=== PATIENT | female | born 2000 | race Caucasian/White ===

== ENCOUNTER 2022-03-03 13:03 | Emergency (ER) | payer MEDICAID, OTHER ==
[~2022-03-03] VITALS: Ht 162 cm; Wt 65.0 kg
--- NOTE | 2022-03-03 13:23 | ED GU-Female ---
General Chief Complaint: - Reproductive Stated Complaint: MISCARRIAGE Nursing Triage Note: PT REPORTS SHE IS ABOUT 7-8 WEEKS AND REPORTS SHE HAS BEEEN HAVING SOME CRAMPING FOR THE PAST 2 WEEKS. PT REPORTS SHE HAD INTERCOURSE LAST PM AND NOW THIS AM AT ABOUT 1030 SHE NOTICED SOME LIGHT PINK SPOTTING. Source: patient Exam Limitations: no limitations History of Present Illness Date Seen by Provider: Mar 03, 2022 Time Seen by Provider: 13:05 Initial Comments 21-year-old female at roughly 6 to 7 weeks with her LMP beginning of January coming in due to spotting. Started roughly 3 hours ago, has been very minimal, pink-tinged. Has some lower abdominal cramping and discomfort which is very mild. Has not taken anything for it as of yet. Has had confirmatory positive test, but has not had any ultrasound as of yet. Otherwise denies any fever, chest pain, severe abdominal pain, nausea, vomiting, diarrhea, dysuria, rash, or any other concerns. Of note, the patient did engage in coitus last night. Allergies and Home Medications Allergies Coded Allergies: No Known Drug Allergies (Unverified , 03/03/22) Patient Home Medication List Home Medication List Reviewed: Yes Nitrofurantoin Monohyd/M-Cryst (Macrobid 100 mg Capsule) 100 Mg Capsule, 1 TAB PO BID Prescribed by: ZOHREH FARMER on 03/03/22 3948 Review of Systems Review of Systems Constitutional: No fever EENTM: No blurred vision Respiratory: No cough Cardiovascular: No chest pain Gastrointestinal: No vomiting Genitourinary: see HPI Musculoskeletal: no symptoms reported Skin: no symptoms reported Psychiatric/Neurological: No Symptoms Reported Endocrine: No Symptoms Reported Hematologic/Lymphatic: No Symptoms Reported All Other Systemes Reviewed Negative Unless Noted: Yes Past Gybdytz-Pznefr-Mmrqwc Hx Patient Social History Tobacco Use?: Yes Tobacco type used: Cigarettes Smoking Status: Current Everyday Smoker Use of E-Cig and/or Vaping dev: No Substance use?: No Alcohol Use?: No Pt feels they are or have been: No Past Medical History Surgeries: No Last Menstrual Period: Jan 12, 2022 Physical Exam Vital Signs Vital Signs - First Documented 03/03/22 13:10 Temp 36.3 Pulse 93 Resp 16 B/P (MAP) 123/87 (99) Pulse Ox 100 O2 Delivery Room Air Capillary Refill : Less Than 3 Seconds Height, Weight, BMI Height: '" Weight: lbs. oz. kg; 24.00 BMI Method: General Appearance: WD/WN, no apparent distress HEENT: PERRL/EOMI, normal ENT inspection, pharynx normal Neck: non-tender, full range of motion, supple, normal inspection Cardiovascular: regular rate, rhythm, no edema, no murmur Respiratory: chest non-tender, lungs clear, normal breath sounds, no respiratory distress, no accessory muscle use Gastrointestinal: normal bowel sounds, non tender, soft; No distended, No guarding, No rebound Back: normal inspection, no CVA tenderness Extremities: normal range of motion, non-tender, normal inspection, no pedal edema, no calf tenderness, normal capillary refill Neurologic/Psychiatric: no motor/sensory deficits, alert, normal mood/affect Skin: normal color, warm/dry Lymphatic: no adenopathy Progress/Results/Core Measures Suspected Sepsis SIRS Temperature: Pulse: 93 Respiratory Rate: 16 Laboratory Tests 03/03/22 13:24: White Blood Count 8.4 Blood Pressure 123 /87 Mean: 99 Laboratory Tests 03/03/22 13:24: Platelet Count 413H Results/Orders Lab Results Laboratory Tests Test 03/03/22 13:24 Range/Units White Blood Count 8.4 4.3-11.0 10^3/uL Red Blood Count 4.52 3.80-5.11 10^6/uL Hemoglobin 12.2 11.5-16.0 g/dL Hematocrit 36 35-52 % Mean Corpuscular Volume 80 80-99 fL Mean Corpuscular Hemoglobin 27 25-34 pg Mean Corpuscular Hemoglobin Concent 34 32-36 g/dL Red Cell Distribution Width 15.0 H 10.0-14.5 % Platelet Count 413 H 130-400 10^3/uL Mean Platelet Volume 8.9 L 9.0-12.2 fL Immature Granulocyte % (Auto) 0 % Neutrophils (%) (Auto) 61 42-75 % Lymphocytes (%) (Auto) 32 12-44 % Monocytes (%) (Auto) 6 0-12 % Eosinophils (%) (Auto) 1 0-10 % Basophils (%) (Auto) 0 0-10 % Neutrophils # (Auto) 5.1 1.8-7.8 10^3/uL Lymphocytes # (Auto) 2.7 1.0-4.0 10^3/uL Monocytes # (Auto) 0.5 0.0-1.0 10^3/uL Eosinophils # (Auto) 0.1 0.0-0.3 10^3/uL Basophils # (Auto) 0.0 0.0-0.1 10^3/uL Immature Granulocyte # (Auto) 0.0 0.0-0.1 10^3/uL Urine Color YELLOW Urine Clarity CLOUDY Urine pH 5.5 5-9 Urine Specific [place] >=1.030 1.016-1.022 Urine Protein NEGATIVE NEGATIVE Urine Glucose (UA) NEGATIVE NEGATIVE Urine Ketones 2+ H NEGATIVE Urine Nitrite NEGATIVE NEGATIVE Urine Bilirubin NEGATIVE NEGATIVE Urine Urobilinogen 0.2 < = 1.0 MG/DL Urine Leukocyte Esterase NEGATIVE NEGATIVE Urine RBC (Auto) NEGATIVE NEGATIVE Urine RBC NONE /HPF Urine WBC 2-5 /HPF Urine Squamous Epithelial Cells 10-25 H /HPF Urine Crystals NONE /LPF Urine Bacteria FEW H /HPF Urine Casts NONE /LPF Urine Mucus NEGATIVE /LPF Urine Culture Indicated NO Human Chorionic Gonadotropin, Quant 8076 H <5 MIU/ML My Orders Orders - ZOHREH FARMER MD Cbc With Automated Diff (03/03/22 13:10) Hcg,Quantitative (03/03/22 13:10) Ua Culture If Indicated (03/03/22 13:13) Acetaminophen Tablet (Tylenol Tablet) (03/03/22 13:30) Medications Given in ED Current Medications Medications Dose Ordered Sig/Jazlyn Route Start Time Stop Time Status Last Admin Dose Admin Acetaminophen 1,000 mg ONCE ONCE PO 03/03/22 13:30 03/03/22 13:31 DC 03/03/22 13:28 1,000 MG Vital Signs/I&O 03/03/22 03/03/22 13:10 13:55 Temp 36.3 36.3 Pulse 93 93 Resp 16 16 B/P (MAP) 123/87 (99) 123/87 Pulse Ox 100 100 O2 Delivery Room Air Room Air Capillary Refill : Less Than 3 Seconds Blood Pressure Mean: 99 Progress Note : Progress Note 21-year-old female with above history coming in due to vaginal spotting during . ABCs were intact and vitals were stable on presentation. Physical exam reassuring including a soft and nontender abdomen. Hemoglobin within normal limits, urinalysis with trace bacteria, and given she is we will treat her for asymptomatic bacteria during . We obtained a beta-hCG so that she can get 1 in 2 days to further assess this . I did a [id number] ultrasound confirming intrauterine . She was too early to assess any type of heart rate, but I do see a pole. Gave her Tylenol for cramping discomfort. We will have her follow-up with her PCP for repeat beta-hCG in 48 hours. She should also follow-up to get a comprehensive ultrasound. Of note, it is possible this is just post-coital bleeding versus implantation bleeding as well. Departure Impression Primary Impression: Threatened miscarriage in early Disposition: HOME, SELF-CARE Condition: Stable Departure-Patient Inst. Decision time for Depature: 14:15 [facility]: [facility] [place] Instructions: Bleeding in Early ED Add. Discharge Instructions: It is possible you are having a miscarriage, but it is impossible to know at this time. Is also possible this is just implantation bleeding or bleeding from sexual activity from last night. You need to have a repeat beta-hCG drawn in at least 48 hours. You can have it drawn after that as well, and they will just see that the numbers are still going up. If the numbers are still going up like it should, that is a good sign this is healthy. You still need a formal ultrasound by an OB doctor. If you start bleeding to where you are fully saturating a pad every hour for several hours then I would want you to present back to an ER. Otherwise it is okay to wait it out at home. Take Tylenol as needed for cramping or pain. If you do not have a primary doctor or anybody to follow-up, call the [facility] in this paperwork and they will see you. They do not require insurance to see you. You also have bacteria in your urine so you will be on an antibiotic for the next 5 days. You Beta-HCG on 03/03/22 at 1pm was 8076. Scripts Nitrofurantoin Monohyd/M-Cryst (Macrobid 100 mg Capsule) 100 Mg Capsule 1 TAB PO BID for 5 Days, #10 CAP Prov: ZOHREH FARMER MD 03/03/22 Work/School Note: Work Release Form Date Seen in the Emergency Department: Mar 03, 2022 Return to Work: Mar 04, 2022 Restrictions: No Restrictions ZOHREH FARMER MD Mar 03, 2022 13:23
[2022-03-03] MEDS ORDERED: ACETAMINOPHEN 500 MG TAB (TYLENOL) PO ONE (13:30)
[2022-03-03 13:31] LABS: BASOPHILS % (AUTO) 0 % (0-10); EOSINOPHILS # (AUTO) 0.1 10^3/uL (0.0-0.3); EOSINOPHILS % (AUTO) 1 % (0-10); HEMATOCRIT 36 % (35-52); HEMOGLOBIN 12.2 g/dL (11.5-16.0); LYMPHOCYTES # (AUTO) 2.7 10^3/uL (1.0-4.0); LYMPHOCYTES % (AUTO) 32 % (12-44); MEAN CORPUSCULAR HEMOGLOBIN 27 pg (25-34); MEAN CORPUSCULAR HGB CONC 34 g/dL (32-36); MEAN CORPUSCULAR VOLUME 80 fL (80-99); MEAN PLATELET VOLUME 8.9 fL (9.0-12.2); MONOCYTES # (AUTO) 0.5 10^3/uL (0.0-1.0); MONOCYTES % (AUTO) 6 % (0-12); NEUTROPHILS # (AUTO) 5.1 10^3/uL (1.8-7.8); NEUTROPHILS % (AUTO) 61 % (42-75); PLATELET COUNT 413 10^3/uL (130-400); WHITE BLOOD COUNT 8.4 10^3/uL (4.3-11.0)
[2022-03-03 13:32] LABS: BILIRUBIN,URINE NEGATIVE (NEGATIVE); CLARITY,URINE CLOUDY; COLOR,URINE YELLOW; GLUCOSE, URINE (UA) NEGATIVE (NEGATIVE); KETONES,URINE 2+ (NEGATIVE); LEUKOCYTE ESTERASE ,URINE NEGATIVE (NEGATIVE); NITRITE,URINE NEGATIVE (NEGATIVE); PH,URINE 5.5 (5-9); PROTEIN,URINE NEGATIVE (NEGATIVE)
[2022-03-03 13:39] LABS: BACTERIA,URINE FEW /HPF
[2022-03-03 13:55] VITALS: BP 123/87
[2022-03-03] MEDS ORDERED: NITR-65 PO (13:56)
== END 2022-03-03 14:03 | disposition home or self-care (01) ==
LOC: ER FS 13:05
DX: O20.0 Threatened abortion (principal); O99.331 Smoking (tobacco) complicating pregnancy, first trimester; F17.210 Nicotine dependence, cigarettes, uncomplicated; Z3A.01 Less than 8 weeks gestation of pregnancy; Z28.310 Unvaccinated for COVID-19
CPT/HCPCS: 36415; 81000; 84702; 85025

== ENCOUNTER 2022-04-02 18:22 | Emergency (ER) | payer MEDICAID, OTHER ==
[~2022-04-02] VITALS: Ht 162.5 cm; Wt 64.2 kg
[~2022-04-02 18:22] MED LIST: NITR-65 PO
[2022-04-02] MEDS ORDERED: ACETAMINOPHEN 500 MG TAB (TYLENOL) PO STA (18:33)
--- NOTE | 2022-04-02 18:39 | ED GU-Female ---
General Chief Complaint: OB < 20 WEEKS Stated Complaint: OB,SPOTTING,CRAMPS Source: patient, old records History of Present Illness Date Seen by Provider: Apr 02, 2022 Time Seen by Provider: 18:24 Initial Comments 21 yo female presenting with recurrent cramping and spotting in the last 4 hours. She denies any recent intercourse or tampons. She was seen 03/03 for same complaint. She reports she has followed up with Dr. Soriano since then and they did ultrasound. She does have pain with urination tonight as well as frequency. She states he last menstrual period was in January and she has a due date in October. She denies fever, chills, dizziness, vomiting. Her spotting is mild and she notices it when she wipes. She has not had to wear a pad. Timing/Duration: this afternoon Severity/Quality: mild Location: suprapubic Radiation: suprapubic Activities at Onset: none Prior Genitourinary Problems: similar symptoms (03/03) Sexual [place] History: less than 2 months ago Modifying Factors: Worsens With Urinating Associated Symptoms: No abdominal pain, No diaphoresis; dysuria; No fever/chills, No loss of bladder control, No lower back pain, No lumps, No mass, No nausea/vomiting, No nocturia, No polyuria, No swelling, No syncope; urinary frequency Allergies and Home Medications Allergies Coded Allergies: No Known Drug Allergies (Unverified , 03/03/22) Patient Home Medication List Home Medication List Reviewed: Yes Amoxicillin (Amoxicillin) 500 Mg Capsule, 500 MG PO TID Prescribed by: CHRISTOPHER TINEO on 04/02/221946 Nitrofurantoin Monohyd/M-Cryst (Macrobid 100 mg Capsule) 100 Mg Capsule, 1 TAB PO BID Prescribed by: ZOHREH FARMER on 03/03/22 0496 Review of Systems Review of Systems Constitutional: No chills, No dizziness, No fever EENTM: no symptoms reported Respiratory: no symptoms reported Cardiovascular: no symptoms reported Gastrointestinal: no symptoms reported Genitourinary: see HPI : Yes Musculoskeletal: no symptoms reported Skin: no symptoms reported Psychiatric/Neurological: No Symptoms Reported Past Cbjxbro-Phcoii-Ngcrtz Hx Patient Social History Tobacco Use?: Yes Tobacco type used: Cigarettes Past Medical History Surgeries: No Physical Exam Vital Signs Vital Signs - First Documented 04/02/22 18:25 Temp 36.7 Pulse 94 Resp 14 B/P (MAP) 110/70 (83) Pulse Ox 100 O2 Delivery Room Air Capillary Refill : Height, Weight, BMI Height: '" Weight: lbs. oz. kg; 24.00 BMI Method: General Appearance: WD/WN, no apparent distress HEENT: PERRL/EOMI, pharynx normal Neck: non-tender, full range of motion, supple, normal inspection Cardiovascular: normal peripheral pulses, regular rate, rhythm Respiratory: chest non-tender, lungs clear, normal breath sounds, no respiratory distress, no accessory muscle use Gastrointestinal: normal bowel sounds, soft, no pulsatile mass; No distended, No guarding, No rebound; tenderness (suprapubic) Rectal: deferred Extremities: normal range of motion, non-tender, normal capillary refill Neurologic/Psychiatric: alert, oriented x 3 Skin: normal color, warm/dry Progress/Results/Core Measures Suspected Sepsis SIRS Temperature: Pulse: Respiratory Rate: Blood Pressure / Mean: Results/Orders Lab Results Laboratory Tests Test 04/02/22 18:33 04/02/22 18:49 Range/Units Urine Color YELLOW Urine Clarity CLOUDY Urine pH 7.0 5-9 Urine Specific [place] 1.020 1.016-1.022 Urine Protein NEGATIVE NEGATIVE Urine Glucose (UA) NEGATIVE NEGATIVE Urine Ketones NEGATIVE NEGATIVE Urine Nitrite POSITIVE H NEGATIVE Urine Bilirubin NEGATIVE NEGATIVE Urine Urobilinogen 0.2 < = 1.0 MG/DL Urine Leukocyte Esterase 2+ H NEGATIVE Urine RBC (Auto) NEGATIVE NEGATIVE Urine RBC NONE /HPF Urine WBC 10-25 H /HPF Urine Squamous Epithelial Cells 5-10 /HPF Urine Crystals PRESENT H /LPF Urine Amorphous Sediment LARGE CAESAR URATES H /LPF Urine Bacteria LARGE H /HPF Urine Casts NONE /LPF Urine Mucus MODERATE H /LPF Urine Culture Indicated YES Human Chorionic Gonadotropin, Quant 77422 H <5 MIU/ML My Orders Orders - CHRISTOPHER TINEO MD Ua Culture If Indicated (04/02/22 18:26) Hcg,Quantitative (04/02/22 18:26) Acetaminophen Tablet (Tylenol Tablet) (04/02/22 18:33) Urine Culture (04/02/22 18:33) Amoxicillin Capsule (Polymox Capsule) (04/02/22 19:48) Vital Signs/I&O 04/02/22 04/02/22 18:25 19:53 Temp 36.7 Pulse 94 96 Resp 14 16 B/P (MAP) 110/70 (83) 112/76 Pulse Ox 100 100 O2 Delivery Room Air Room Air Capillary Refill : Progress Note #1: Progress Note obtain urine to check for UTI. Quantitative HCG level to compare to 8067 level from 03/03. Tylenol 1000 mg to help with her pelvic cramping. Differential diagnosis threatened miscarriage, implantation bleeding, UTI Progress Note #2: Progress Note UA positive for Nitrites, LE, WBC, Bacteria[place] [address]. this is reassuring with elevated Beta HCG and findings of UTI. UTI is likely cause of spotting since she sees it with wiping after urination. Still counseled on follow up and return precautions with threatened miscarriage chance since she has had bleeding. She states she has had an ultrasound done with Dr. Soriano so this would rule out ectopic. Will treat for UTI and have her check back with Dr. Soriano. After referencing online medical source, [facility], will treat pt with amoxicillin and give her first dose tonight. Departure Impression Primary Impression: Cystitis with hematuria Additional Impressions: Threatened miscarriage in early Vaginal bleeding affecting early Disposition: 01 HOME, SELF-CARE Condition: Stable Departure-Patient Inst. Decision time for Depature: 19:43 Referrals: JAYDNO SORIANO MD (PCP/Family) Primary Care Physician Patient Instructions: Bleeding in Early ED, Urinary Tract Infection, Adult ED Add. Discharge Instructions: Stay well hydrated and drink plenty of water and electrolyte drinks to help flush out your urine. Cranberry juice is another good option to help clear the infection along with taking the antibiotics. Take the full course of antibiotics. Call Dr. Soriano's office in the morning to let them know you were seen for spot ting and cramping and found to have a UTI. Your Beta HCG level is 56,602 if she does a repeat hormone level. If you have worsening bleeding to point of saturating more than a pad an hour, fever over 101 F, or uncontrolled vomiting you should be seen again as you may need IV antibiotics and fluids to treat infection. No Sex or intercourse until after the spotting is done and you have finished your antibiotics. All discharge instructions reviewed with patient and/or family. Voiced understanding. Scripts Amoxicillin (Amoxicillin) 500 Mg Capsule 500 MG PO TID for UTI for 7 Days, #21 CAP 0 Refills Prov: CHRISTOPHER TINEO MD 04/02/22 Work/School Note: Work Release Form Date Seen in the Emergency Department: Apr 02, 2022 Return to Work: Apr 04, 2022 Restrictions: No Restrictions CHRISTOPHER TINEO MD Apr 02, 2022 18:39
[2022-04-02 18:57] LABS: BILIRUBIN,URINE NEGATIVE (NEGATIVE); CLARITY,URINE CLOUDY; COLOR,URINE YELLOW; GLUCOSE, URINE (UA) NEGATIVE (NEGATIVE); KETONES,URINE NEGATIVE (NEGATIVE); LEUKOCYTE ESTERASE ,URINE 2+ (NEGATIVE); NITRITE,URINE POSITIVE (NEGATIVE); PROTEIN,URINE NEGATIVE (NEGATIVE)
[2022-04-02 19:06] LABS: AMORPHOUS SEDIMENT,UR LARGE AMOR URATES /LPF; BACTERIA,URINE LARGE /HPF
[2022-04-02] MEDS ORDERED: AMOX500C2 PO (19:47)
[2022-04-02] MEDS ORDERED: AMOXICILLIN 500 MG (POLYMOX) CAP PO STA (19:48)
[2022-04-02 19:53] VITALS: BP 112/76
== END 2022-04-02 19:54 | disposition home or self-care (01) ==
LOC: EDUNIT# 18:22 → ER FS 18:23
DX: O20.0 Threatened abortion (principal); O23.10 Infections of bladder in pregnancy, unspecified trimester; O99.330 Smoking (tobacco) complicating pregnancy, unspecified trimester; F17.210 Nicotine dependence, cigarettes, uncomplicated; Z3A.00 Weeks of gestation of pregnancy not specified; Z28.310 Unvaccinated for COVID-19
CPT/HCPCS: 36415; 81000; 84702; 87088

== ENCOUNTER 2022-06-13 13:08 | Emergency (ER) | payer MEDICAID ==
[~2022-06-13] VITALS: Ht 162 cm; Wt 63.0 kg
[~2022-06-13 13:08] MED LIST changes: +AMOX500C2 PO
[2022-06-13 13:21] VITALS: BP 116/63
--- NOTE | 2022-06-13 13:22 | ED General ---
General Chief Complaint: General Problems/Pain Stated Complaint: PAIN W , STRAINED A MUSCLE History of Present Illness Date Seen by Provider: Jun 13, 2022 Time Seen by Provider: 13:21 Initial Comments 21 yr F who is [id number], is here with c/o left sided abdominal wall pain for the past 36 hours after she was lifting a heavy garbage bag at work and felt straining and pain in the left groin and left hip and flank area. She saw her PCP who asked her to come to the ER to check heart sounds and check her urine. Pt works at a [employer] and stands on her feet all day. Denies vaginal bleeding, fever, dysuria, respiratory symptoms, tingling or numbness in her extremities. Allergies and Home Medications Allergies Coded Allergies: No Known Drug Allergies (Unverified , 03/03/22) Patient Home Medication List Home Medication List Reviewed: Yes Amoxicillin (Amoxicillin) 500 Mg Capsule, 500 MG PO TID Prescribed by: CHRISTOPHER TINEO on 04/02/221946 Nitrofurantoin Monohyd/M-Cryst (Macrobid 100 mg Capsule) 100 Mg Capsule, 1 TAB PO BID Prescribed by: ZOHREH FARMER on 03/03/22 1356 Review of Systems Review of Systems Constitutional: no symptoms reported EENTM: no symptoms reported Respiratory: no symptoms reported Cardiovascular: no symptoms reported Gastrointestinal: no symptoms reported Genitourinary: no symptoms reported : Yes Musculoskeletal: muscle pain Skin: no symptoms reported Psychiatric/Neurological: No Symptoms Reported Hematologic/Lymphatic: No Symptoms Reported Immunological/Allergic: no symptoms reported Past Oihgrsf-Gnhpgv-Zstuat Hx Patient Social History Tobacco Use?: No Use of E-Cig and/or Vaping dev: Yes Substance use?: No Alcohol Use?: No Past Medical History Surgeries: No Physical Exam Vital Signs Vital Signs - First Documented 06/13/22 13:21 Temp 36.2 Pulse 56 Resp 16 B/P (MAP) 116/63 (80) Pulse Ox 100 O2 Delivery Room Air Capillary Refill : Height, Weight, BMI Height: '" Weight: lbs. oz. kg; 24.00 BMI Method: General Appearance: No Apparent Distress, WD/WN HEENT: PERRL/EOMI Neck: Full Range of Motion, Normal Inspection, Non Tender, Supple Respiratory: Lungs Clear, Normal Breath Sounds Cardiovascular: Regular Rate, Rhythm, No Edema Gastrointestinal: Normal Bowel Sounds, Non Tender, Soft Genital/Rectal: Other (Left sided tenderness along the inguinal ligament and left piriformis muscle area and left paraspinal lumbar area as well.) Back: Normal Inspection, No CVA Tenderness, No Vertebral Tenderness Extremity: Normal Inspection, Normal Range of Motion Neurologic/Psychiatric: Alert, Oriented x3, No Motor/Sensory Deficits, Normal Mood/Affect Skin: Normal Color Progress/Results/Core Measures Suspected Sepsis SIRS Temperature: Pulse: Respiratory Rate: Blood Pressure / Mean: Results/Orders Lab Results Laboratory Tests Test 06/13/22 13:22 Range/Units Urine Color YELLOW Urine Clarity CLOUDY Urine pH 6.0 5-9 Urine Specific [place] 1.025 H 1.016-1.022 Urine Protein NEGATIVE NEGATIVE Urine Glucose (UA) NEGATIVE NEGATIVE Urine Ketones 1+ H NEGATIVE Urine Nitrite NEGATIVE NEGATIVE Urine Bilirubin NEGATIVE NEGATIVE Urine Urobilinogen 0.2 < = 1.0 MG/DL Urine Leukocyte Esterase TRACE H NEGATIVE Urine RBC (Auto) NEGATIVE NEGATIVE Urine RBC 2-5 H /HPF Urine WBC 5-10 H /HPF Urine Squamous Epithelial Cells 25-50 H /HPF Urine Crystals NONE /LPF Urine Bacteria LARGE H /HPF Urine Casts NONE /LPF Urine Mucus LARGE H /LPF Urine Culture Indicated NO My Orders Orders - PETE LE MD Ua Culture If Indicated (06/13/22 13:27) Vital Signs/I&O 06/13/22 13:21 Temp 36.2 Pulse 56 Resp 16 B/P (MAP) 116/63 (80) Pulse Ox 100 O2 Delivery Room Air Capillary Refill : Progress Note : Progress Note 1. LEFT SIDED INGUINAL LIGAMENT STRAIN & ASYMPTOMATIC ACUTE CYSTITIS WITH HEMATURIA: - UA: Is positive for LE, RBC, WBC, bacteria. Will treat since patient is - Advised heat application, Tylenol prn pain, Gentle muscle stretches. No heavy lifting -Prescription given for Keflex twice daily for 5 days. -Adequate hydration advised, 8 glasses of water or more per day. - Follow up with PCP/ OB-BIBLE READER in 3 to 7 days -The patient was seen in the ED, and treated appropriately to presentation at a specific point in time. Patient is informed that there is a possibility that disease and illness can evolve and change in acuity rapidly or slowly after patient is discharged from the ER. Precautionary advice given to the patient for immediate return to ER if symptoms worsen or do not resolve, and to seek emergency care sooner rather than later. Pt also advised on the importance of PCP follow up and compliance with management and follow up plan with PCP and/or specialist, as this is part of the management plan. Pt verbally expressed understanding. Departure Impression Primary Impression: Acute cystitis during Qualified Codes: O23.11 - Infections of bladder in , first trimester Additional Impression: Inguinal muscle strain Qualified Codes: S39.013A - Strain of muscle, fascia and tendon of pelvis, initial encounter Disposition: HOME, SELF-CARE Condition: Stable Departure-Patient Inst. Referrals: JAYDON HUFF MD (PCP/Family) Primary Care Physician Patient Instructions: Groin Strain, Urinary Tract Infections in , Groin Strain (DC) Add. Discharge Instructions: - Advised heat application, Tylenol prn pain, Gentle muscle stretches. No heavy lifting -Prescription given for Keflex twice daily for 5 days. -Adequate hydration advised, 8 glasses of water or more per day. - Follow up with PCP/ OB-BIBLE READER in 3 to 7 days All discharge instructions reviewed with patient and/or family. Voiced understanding. Scripts Cephalexin (Cephalexin) 500 Mg Tablet 500 MG PO BID for 5 Days, #10 TAB Prov: PETE LE MD 06/13/22 Work/School Note: Work Release Form Date Seen in the Emergency Department: Jun 13, 2022 Return to Work: Jun 16, 2022 Other Restrictions Listed Below: No heavy lifting PETE LE MD Jun 13, 2022 13:22
[2022-06-13 13:31] LABS: BILIRUBIN,URINE NEGATIVE (NEGATIVE); COLOR,URINE YELLOW; GLUCOSE, URINE (UA) NEGATIVE (NEGATIVE); KETONES,URINE 1+ (NEGATIVE); LEUKOCYTE ESTERASE ,URINE TRACE (NEGATIVE); NITRITE,URINE NEGATIVE (NEGATIVE); PROTEIN,URINE NEGATIVE (NEGATIVE)
[2022-06-13 13:32] LABS: BACTERIA,URINE LARGE /HPF; CLARITY,URINE CLOUDY; SQUAMOUS EPITHELIAL CELL,UR 25-50 /HPF
[2022-06-13] MEDS ORDERED: CEPH500T PO (14:10)
== END 2022-06-13 14:17 | disposition home or self-care (01) ==
LOC: EDUNIT# 13:08 → ER FS 13:13
DX: O9A.212 Injury, poisoning and certain other consequences of external causes complicating pregnancy, second trimester (principal); S39.013A Strain of muscle, fascia and tendon of pelvis, initial encounter; O23.12 Infections of bladder in pregnancy, second trimester; O99.332 Smoking (tobacco) complicating pregnancy, second trimester; F17.290 Nicotine dependence, other tobacco product, uncomplicated; Z28.310 Unvaccinated for COVID-19; Z3A.20 20 weeks gestation of pregnancy; X50.0XXA Overexertion from strenuous movement or load, initial encounter; Y92.524 Gas station as the place of occurrence of the external cause; Y92.59 Other trade areas as the place of occurrence of the external cause; Y99.0 Civilian activity done for income or pay
CPT/HCPCS: 81000

== ENCOUNTER 2023-05-21 15:08 | Emergency (ER) | payer MEDICAID ==
[~2023-05-21 15:08] MED LIST changes: +CEPH500T PO
[2023-05-21 15:14] VITALS: BP 132/85
[2023-05-21] MEDS ORDERED: ACHD5005 PO (15:21)
[2023-05-21] MEDS ORDERED: IBUP-1780 PO (15:21)
--- NOTE | 2023-05-21 15:23 | ED EENT ---
History of Present Illness General Stated Complaint: DENTAL PAIN Source: patient History of Present Illness Date Seen by Provider: May 21, 2023 Time Seen by Provider: 15:10 Initial Comments 22-year-old female presenting with complaints of severe dental pain. She states that she has wisdom teeth that have been giving her pain off and on for a long time but she has not seen a dentist about it. Her teeth on the right side started hurting more last night. She reports that as the wisdom teeth are coming they were pushing against further teeth and chipped the tooth in front of the wisdom tooth on her right upper side. She also has pain on the right lower side. She feels like the teeth are too crowded together. She denies any acute trauma or injury. She has had no fever, chills, nausea, vomiting. She did make an appointment to see a dentist in [place] on Wednesday at 9 AM. Timing/Duration: abrupt, yesterday Severity: severe Location: dental Prearrival Treatment: over the counter meds Associated Symptoms: No change in hearing, No cough, No drooling, No ear drainage, No facial pain/swelling, No fever, No malaise, No nasal congestion /drainage, No poor fluid intake, No poor solids intake, No sinus infection, No sore throat; tooth pain; No voice change Allergies and Home Medications Allergies Coded Allergies: No Known Drug Allergies (Unverified , 03/03/22) Patient Home Medication List Home Medication List Reviewed: Yes Hydrocodone/Acetaminophen (Hydrocodone-Acetamin 5-325 mg) 5 Mg-325 Mg Tablet, 1 TAB PO Q6H PRN for PAIN SEVERE Prescribed by: CHRISTOPHER TINEO on 05/21/23 1522 Ibuprofen (Ibuprofen) 800 Mg Tablet, 800 MG PO Q8H PRN for PAIN Prescribed by: CHRISTOPHER TINEO on 05/21/23 1521 Discontinued Medications Amoxicillin (Amoxicillin) 500 Mg Capsule, 500 MG PO TID Prescribed by: CHRISTOPHER TINEO on 04/02/221946 Cephalexin (Cephalexin) 500 Mg Tablet, 500 MG PO BID Prescribed by: PETE LE MD on 06/13/22 1410 Nitrofurantoin Monohyd/M-Cryst (Macrobid 100 mg Capsule) 100 Mg Capsule, 1 TAB PO BID Prescribed by: ZOHREH FARMER on 03/03/22 1356 Review of Systems Review of Systems Constitutional: No chills, No fever Eyes: No Symptoms Reported Ears: No Symptoms Reported Nose: no symptoms reported Mouth: see HPI Throat: no symptoms reported Respiratory: no symptoms reported Cardiovascular: no symptoms reported Gastrointestinal: no symptoms reported : No LMP: May 01, 2023 Musculoskeletal: no symptoms reported Skin: no symptoms reported Neurological: No Symptoms Reported Past Igskhfk-Xagcer-Sjkzmr Hx Past Medical History Surgeries: No Physical Exam Vital Signs Vital Signs - First Documented 05/21/23 15:14 Temp 35.8 Pulse 84 Resp 16 B/P (MAP) 132/85 (101) Pulse Ox 100 O2 Delivery Room Air Height, Weight, BMI Height: '" Weight: lbs. oz. kg; 24.00 BMI Method: General Appearance: WD/WN, no apparent distress Eyes: bilateral eye PERRL, bilateral eye EOMI Mouth/Throat: pharynx normal, dental tenderness (Right upper and lower posterior teeth) Neck: non-tender, full range of motion, supple, normal inspection Neurologic/Psychiatric: alert, oriented x 3 Progress/Results/Core Measures Results/Orders Vital Signs/I&O 05/21/23 15:14 Temp 35.8 Pulse 84 Resp 16 B/P (MAP) 132/85 (101) Pulse Ox 100 O2 Delivery Room Air Progress Progress Note : Progress Note I did not appreciate any acute swelling to her gums or evidence of infection such as fever or chills. Will prescribe hydrocodone/acetaminophen 5/325 1 every 6 hours as needed severe pain as well as ibuprofen 800 mg every 8 hours for pain and inflammation. Advised to keep the appointment on Wednesday as scheduled and follow-up with primary care if she needed additional pain medicine prior to seeing the dentist. Departure Impression Primary Impression: Pain, dental Additional Impression: Impacted teeth Disposition: HOME, SELF-CARE Condition: Stable Departure-Patient Inst. Decision time for Depature: 15:20 Referrals: JAYDON HUFF MD (PCP/Family) Primary Care Physician Patient Instructions: Dental Pain ED Add. Discharge Instructions: Continue taking the ibuprofen for pain and inflammation. For severe pain take the hydrocodone with acetaminophen Keep your appointment with the dentist on Wednesday as scheduled. If you were to need additional pain medicine before you see the dentist check back with your primary care provider. Scripts Ibuprofen (Ibuprofen) 800 Mg Tablet 800 MG PO Q8H PRN for PAIN for 10 Days, #30 TAB 0 Refills Prov: CHRISTOPHER TINEO MD 05/21/23 Hydrocodone/Acetaminophen (Hydrocodone-Acetamin 5-325 mg) 5 Mg-325 Mg Tablet 1 TAB PO Q6H PRN for PAIN SEVERE for 5 Days, #20 TAB 0 Refills Prov: CHRISTOPHER TINEO MD 05/21/23 CHRISTOPHER TINEO MD May 21, 2023 15:23
== END 2023-05-21 15:30 | disposition home or self-care (01) ==
LOC: EDUNIT# 15:08 → ER FS 15:09
DX: K01.1 Impacted teeth (principal)
CPT/HCPCS: 99282